=== PATIENT | female | born 1970 | race Hispanic/Latino ===

== ENCOUNTER → 2018-07-10 11:47 | Outpatient (CLI) | payer OTHER, SELFPAY ==
--- NOTE | 2018-07-10 11:50 | DI.RAD.S_ITS ---
PROCEDURE: XR CERVICAL SPINE 4V OR 5V INDICATIONS: neck pressure/headache TECHNIQUE: 5 views of the cervical spine acquired. COMPARISON: [facility], , C-SPINE WITHOUT CONTRAST, 11/12/2015, 12:18. FINDINGS: Bones: Loss of normal cervical lordosis. No fractures or dislocations to the C7 level. There is mild degenerative disc disease at C6-C7. Oblique images demonstrate no bony foraminal stenoses. Soft tissues: No prevertebral soft tissue swelling. IMPRESSION: Mild degenerative disc disease at C6-C7. Dictated by: Howie Salinas M.D. on 07/10/2018 at 16:45 Approved by: Howie Salinas M.D. on 07/10/2018 at 16:46
== END ==
PROVIDERS: Visit Provider Family Medicine
DX: R51 Headache (principal); M50.323 Other cervical disc degeneration at C6-C7 level
CPT/HCPCS: 72050

== ENCOUNTER → 2018-07-26 12:38 | Outpatient (CLI) | payer OTHER, SELFPAY ==
--- NOTE | 2018-07-26 12:41 | DI.MRI.S_ITS ---
PROCEDURE: MR HEAD/BRAIN WO CON INDICATIONS: new daily headaches TECHNIQUE: Noncontrast axial T1 spin echo, axial T2 fast spin echo, sagittal and axial FLAIR, coronal T2 fast spin echo, axial gradient echo, axial diffusion and ADC through the brain. COMPARISON: None. FINDINGS: Image quality: Excellent. CSF Spaces: Basal cisterns are patent. No extra-axial fluid collections. Ventricles are normal in size and shape. Brain: No intracranial masses or hemorrhage. Maldonado/white matter interface is normal. Brainstem appears normal. Diffusion-weighted images demonstrate no acute ischemic insult. No chronic ischemic insults. Normal intravascular flow voids are present. Skull and face: Calvarium has normal marrow signal. Orbits appear normal. Sinuses: Sinuses and mastoids are clear. IMPRESSION: No acute intracranial abnormality. No explanation for headaches. Dictated by: Nina Mckee M.D. on 07/26/2018 at 13:41 Approved by: Nina Mckee M.D. on 07/26/2018 at 13:42
--- NOTE | 2018-07-26 12:41 | DI.US.S_ITS ---
PROCEDURE: US CAROTID DOPPLER BI INDICATIONS: HEADACHE TECHNIQUE: Color and pulse Doppler interrogation was performed of both carotid systems, with image documentation and velocity measurements. COMPARISON: None. FINDINGS: Stenosis calculations are based on SRU (Society of Radiologists in Ultrasound) criteria. Right side: Brachial blood pressure: Not obtained. Common carotid artery peak systolic velocity: 101 cm/sec. Internal carotid artery peak systolic velocity: 81 cm/sec. Internal carotid artery end diastolic velocity: 31 cm/sec. External carotid artery peak systolic velocity: 113 cm/sec. ICA/CCA peak systolic ratio: 0.8. Maldonado scale imaging description: Minimal plaque. Percent internal carotid artery stenosis: Less than 50%. Vertebral artery: Flow direction is antegrade. Left side: Brachial blood pressure: 120/87 mm Hg. Common carotid artery peak systolic velocity: 100 cm/sec. Internal carotid artery peak systolic velocity: 99 cm/sec. Internal carotid artery end diastolic velocity: 40 cm/sec. External carotid artery peak systolic velocity: 122 cm/sec. ICA/CCA peak systolic ratio: 1.0. Maldonado scale imaging description: Nimal plaque. Percent internal carotid artery stenosis: Less than 50%. Vertebral artery: Flow direction is antegrade. IMPRESSION: Less than 50% bilateral internal carotid artery stenosis. Dictated by: Varun Terrell [facility] Interpreted: Lamine Rodrigues MD on 07/26/2018 at 14:34 Approved by: Lamine Rodrigues M.D. on 07/26/2018 at 17:17
== END ==
PROVIDERS: PCP General Practice; Visit Provider Family Medicine
DX: R51 Headache (principal); I65.23 Occlusion and stenosis of bilateral carotid arteries
CPT/HCPCS: 70551; 93880

== ENCOUNTER 2023-07-25 09:27 | Day surgery (SDC) | payer OTHER, SELFPAY ==
--- NOTE | 2023-07-25 | PATH_ITS ---
[facility] Accession Number: [id number] No. of containers..01 Tissue . 01 Material submitted: . colon - POLYP @ 50 CM . 01 Diagnosis: Colon Polyp at 50 cm: Tubular adenoma. MRV 07/30/2023 1529 Local . 01 Electronically signed: . Dontae Mckeon MD, PhD, Pathologist NPI- [id number] . 01 Gross description: . POLYP @ 50 CM: Received in formalin is 1 fragment(s) of barnhart, soft tissue measuring 0.5 x 0.3 x 0.2 cm submitted entirely in 1 cassette(s) /NORIS 07/26/2023 2017 Local . 01 Pathologist provided ICD-10: D12.6 . 01 CPT . 459843 Specimen Comment: A courtesy copy of this report has been sent to [phone] Performed at: 01 [facility] [address] [place] [address], [place], [place] [id number] MD Gunnar Carter MD Phone: [phone]
[2023-07-25 09:50] VITALS: BP 136/91; PULSE 85; RESP 16; TEMP 35.8; O2SAT 100
--- NOTE | 2023-07-25 09:51 | PM.HP.1 ---
History of Present Illness History of Present Illness Chief complaint: Colonoscopy Narrative: Screening and known bleeding hemorrhoids PFSH Social History Smoking Status: Current every day smoker Meds Home Medications and Allergies Home Medications Medication Instructions Recorded Confirmed Type telmisartan 80 1 tab PO DAILY 07/10/18 07/25/23 History mg-hydrochlorothiazide 12.5 mg tablet (Micardis HCT) atorvastatin 80 mg tablet 80 mg PO DAILY 07/25/23 07/25/23 History Allergies Allergy/AdvReac Type Severity Reaction Status Date / Time No Known Drug Allergies Allergy Verified 07/25/23 09:48 Exam Narrative Exam Narrative: Oropharynx free of lesions Chest clear to auscultation percussion Cardiac exam reveals no S3 or murmur Assessment & Plan Assessment & Plan narrative: Screening for colorectal neoplasia with history of bleeding from protruding hemorrhoids. Risks, benefits, alternatives have been explained.
--- NOTE | 2023-07-25 09:52 | PM.OP.COLON ---
Operative Date/Time/Diagnoses Date of procedure: 07/25/23 Pre-op diagnosis: See indication and findings Procedure & Clinicians Study performed: Colonoscopy Indications: Screening Procedure Notes Procedure in detail: No after informed consent was obtained the patient was placed in left lateral decubitus position. The video colonoscope was introduced the rectum slowly advanced cecum. Preparation was good. On slow withdrawal mucosa was carefully examined. The scope was removed. The patient to the procedure well. Blood loss none Complications none Sedation mac Findings 1. Sessile 4 mm polyp at 50 cm Jumbo biopsy removed completely 2. Large internal and external hemorrhoids 3. Otherwise negative colonoscopy to cecum Will be in touch regarding pathology and she may well need follow-up colonoscopy in 7 years. In the meantime, if she wants her hemorrhoids addressed appointment with General surgery could be made.
[2023-07-25] MEDS: LACTATED RINGERS 1,000 ML 42 ML IV (10:08)
[2023-07-25 11:17] VITALS: BP 109/75; PULSE 78; RESP 15; TEMP 36.4; O2SAT 94
[2023-07-25 11:25] VITALS: BP 118/74; PULSE 83; RESP 21; TEMP 36.4; O2SAT 96
[2023-07-25 11:35] VITALS: BP 128/78; PULSE 75; RESP 15; TEMP 36.4; O2SAT 99
== END 2023-07-25 11:40 | disposition home or self-care (01) ==
PROVIDERS: PCP General Practice; Referring Provider Internal Medicine Gastroenterology; Visit Provider Internal Medicine Gastroenterology
PROC: 0DJD8ZZ Inspection of Lower Intestinal Tract, Via Natural or Artificial Opening Endoscopic (ICD-10-PCS; CPT 45378; principal; 2023-07-25 10:30)
DX: Z12.11 Encounter for screening for malignant neoplasm of colon (principal); K64.8 Other hemorrhoids; K64.4 Residual hemorrhoidal skin tags; Z87.19 Personal history of other diseases of the digestive system; K63.5 Polyp of colon
CPT/HCPCS: 45380; J2704; J3010